=== PATIENT | male | born 1960 | race Caucasian/White ===

== ENCOUNTER 2017-06-01 07:52 | Inpatient (IN) | payer BC ==
[2017-06-01 08:32] LABS: #Eosinphils 0.1 thou/uL (0.0-0.7); #Lymphocytes 0.8 thou/uL (1.20-3.40); #Monocytes 1.4 thou/uL (0.11-0.59); #Neutrophils 14.3 thou/uL (1.40-6.50); %Basophils 0.2 % (0.0-1.0); %Eosinophils 0.4 % (0.0-10.0); %Lymphocytes 4.7 % (21.0-51.0); %Monocytes 8.4 % (0.0-10.0); %Neutrophils 86.3 % (42.0-75.0); Hemoglobin 12.8 g/dL (14.0-18.0); Mean Corpuscular HGB CONC 33.3 g/dL (32.0-36.0); Mean Corpuscular Hemoglobin 30.1 pg (27.0-31.0); Mean Corpuscular Volume 90.3 fl (80.0-94.0); Mean Platelet Volume 6.8 fL (7.4-10.4); Platelet Count 313 thou/uL (130-400); RBC Distribution Width 11.1 % (11.5-14.5); Red Blood Cell (RBC) Count 4.26 mill/uL (4.70-6.10); White Blood Cell (WBC) Count 16.6 thou/uL (4.8-10.8)
[2017-06-01] MEDS ORDERED: Ondansetron HCl/PF 4 MG/2 ML Vial ONE ×2 (08:50→12:38)
[2017-06-01 08:55] LABS: ALT (SGPT) 13 U/L (8-55); AST (SGOT) 18 U/L (5-34); Albumin 3.9 g/dL (3.5-5.0); Alkaline Phosphatase 112 U/L (40-150); Anion Gap 14 mmol/L (10-20); BUN (Urea Nitrogen) 41 mg/dL (8.4-25.7); Bilirubin, Total 0.6 mg/dL (0.2-1.2); Calc. Creatinine Clearance 0 mL/min (70-130); Calcium 9.7 mg/dL (7.8-10.44); Carbon Dioxide 23 mmol/L (22-29); Chloride 104 mmol/L (98-107); Estimated GFR-MDRD 24; Globulin 3.9 g/dL (2.4-3.5); Glucose 118 mg/dL (70-105); Lipase 50 U/L (8-78); Potassium 4.6 mmol/L (3.5-5.1); Protein, Total 7.8 g/dL (6.0-8.3); Sodium 136 mmol/L (136-145)
--- NOTE | 2017-06-01 09:06 | CT ---
CT ABDOMEN AND PELVIS WITHOUT CONTRAST STONE PROTOCOL: Date: 06/01/17 HISTORY: Left flank pain. COMPARISON: CT abdomen and pelvis stone protocol from 2016. FINDINGS: There is an obstructive calculus of the left ureteropelvic junction. This is a large calculus measuri ng approximately 8.0 mm transverse x almost 1.0 cm in craniocaudad length. There is obstructive hydro nephrosis on the left. Multiple punctate nonobstructive calculi within left renal collecting system. There is mild thickening of the right proximal ureter. No calculi seen within the urinary bladder. Mild diverticular disease sigmoid colon without active inflammation. No dilated loops of large or sma ll bowel. Lung bases are clear. No pericardial effusion. The aortoiliac contour is nonaneurysmal. Skeleton unremarkable. IMPRESSION: 1. Obstructive calculus proximal left ureter at the ureteropelvic junction measuring 8.0 mm x 1.0 cm . Urologic consultation is recommended. 2. Atrophic right kidney. 3. Mild thickening of the right-sided proximal ureter, likely sequelae of chronic reflux or calculus passage. 4. Similar appearance to the punctate left lower lobe 3.0 mm nodule. POS: [facility]
[2017-06-01 09:48] LABS: Bilirubin Negative (Negative); Blood, Urine Large (Negative); Clarity CLOUDY (Clear); Glucose, Urine (Dipstick) Negative (Negative); Leukocyte Trace (Negative); Nitrite Negative (Negative); Protein, Urine (Dipstick) 100 mg/dL (Neg-Trace); Specific Gravity, Urine 1.013 (1.002-1.036); Urobilinogen 0.2 mg/dL (0.2-1.0); pH, Urine 7.5 (5.0-9.0)
[2017-06-01 09:50] LABS: Bacteria/HPF None Seen HPF (None Seen); Hyaline Casts/LPF 0-3 HYALINE CAST LPF (0-3 Hyaline); Pathc Cast-AUWi Flag 0.13 (0-2.49); RBC/HPF GREATER THAN 50-TNTC HPF (0-3); Squamous Epithelial None Seen HPF (0-3)
[2017-06-01] MEDS ORDERED: Lidocaine 1% PF 5 ML VIAL ONE (12:38)
[2017-06-01] MEDS ORDERED: Dexamethasone 20 MG/5 ML VIAL ONE (12:38)
[2017-06-01] MEDS ORDERED: Glycopyrrolate 0.2 MG/ML 5 ML SYRINGE ONE (12:38)
[2017-06-01] MEDS ORDERED: PHENYLEPHRINE-NS 100 MCG/ML 10 ML SYRINGE ONE (12:38)
[2017-06-01] MEDS ORDERED: Propofol 200 MG/20 ML VIAL ONE (12:38)
[2017-06-01] MEDS ORDERED: Iothalamate Meglumine 60% 50 ML VIAL FS ONE ×2 (12:38→13:17)
[2017-06-01] MEDS ORDERED: Morphine 2 MG/ML SYRINGE ONE (14:37)
[2017-06-01] MEDS ORDERED: Fentanyl 100 MCG/2 ML VIAL ONE (15:02)
[2017-06-01] MEDS ORDERED: cefTRIAXone\\ROCEPHIN 1 GM, Syringe 0.4 ML in Sterile Water 9.6 ML SLOW IVP SCH (15:30)
[2017-06-01] MEDS ORDERED: Mag-Al 1200 mg/1200 mg/30 ML UDCUP PO PRN (16:49)
[2017-06-01] MEDS ORDERED: hydrALAZINE 20 MG/ML VIAL SLOW IVP PRN (16:49)
[2017-06-01] MEDS ORDERED: HYDROcodone/Acetaminophen 5/325 mg Tablet PO PRN ×2 (16:49)
[2017-06-01] MEDS ORDERED: diphenhydrAMINE 25 MG CAP PO PRN (16:49)
[2017-06-01] MEDS ORDERED: Morphine 4 MG/ML Carpuject IVP PRN (16:49)
[2017-06-01] MEDS ORDERED: Ondansetron HCl/PF 4 MG/2 ML Vial IVP PRN (16:49)
[2017-06-01] MEDS ORDERED: Hyoscyamine Sulfate SL 0.125 mg Tablet SL PRN (16:49)
[2017-06-01] MEDS ORDERED: Oxybutynin 5 MG TAB PO PRN (16:49)
[2017-06-01] MEDS ORDERED: Sodium Chloride 0.9% 1,000 ML IV SCH (17:00)
--- NOTE | 2017-06-01 19:06 | OP ---
DATE OF PROCEDURE: 06/01/2017 SERVICE: Urology. SURGEON: Luke Rivas M.D. PRETOPERATIVE DIAGNOSES: 1. Left ureteropelvic junction stone. 2. Acute kidney injury. 3. Solitary functioning left kidney. POSTOPERATIVE DIAGNOSES: 1. Left ureteropelvic junction obstruction. 2. Acute kidney injury. 3. Left solitary functioning kidney. PROCEDURE PERFORMED: Cystoscopy with left ureteral stent placement, 6 x 28 double-J stent. INDICATIONS FOR PROCEDURE: Mr. Lopez is a 56-year-old white male who I have seen in the past for n ephrolithiasis. He has a known left-sided solitary functioning kidney with significant atrophy of th e right kidney secondary to IgA nephropathy. He came in with a history of flank pain and a 1 cm left UPJ stone with acute kidney injury. Given the solitary kidney, I recommended he come in for uretera l stent placement. Risks and benefits of surgery have been discussed and he has agreed to proceed fo rward. DESCRIPTION OF PROCEDURE: After identification of armband and verification of consent, patient was b rought back to the operating room where he underwent general anesthesia with an LMA. He was then mark fabio in dorsal lithotomy position, prepped and draped in usual sterile fashion. After appropriate ann eout, a lubricated 22 Malaysian rigid cystoscope was introduced per urethra into the bladder. The prost ate was only mildly hypertrophic with no strictures in the urethra. The bladder was unremarkable. B oth ureters were in their orthotopic location. The left ureter was cannulated with a 0.035 sensor wi re up to the level of the renal pelvis. On fluoroscopy, the stone was only faintly radiopaque and th e wire was navigated past this. A 6 x 28 double-J stent was then advanced over the sensor wire up to the level of the renal pelvis. The wire was then removed leaving a good curl in the renal pelvis an d good curl in the bladder. The bladder was emptied, the cystoscope removed. The patient was then a wakened and taken to PACU for recovery in stable condition. COMPLICATIONS: None. ESTIMATED BLOOD LOSS: Minimal. RETAINED TUBES AND DRAINS: A 6 x 28 double-J stent on the left. SPECIMENS: None. DISPOSITION: Patient will be discharged home and followed up with me later this week for ureteroscop y with laser lithotripsy for removal of the stone.
[2017-06-01] MEDS: Docusate 100 MG CAP PO SCH (21:39)
[2017-06-02 03:54] VITALS: BMI 31.4
[2017-06-02 05:45] LABS: #Lymphocytes 1.2 thou/uL (1.20-3.40); #Neutrophils 11.1 thou/uL (1.40-6.50); %Basophils 0.2 % (0.0-1.0); %Eosinophils 0.3 % (0.0-10.0); %Lymphocytes 8.6 % (21.0-51.0); %Monocytes 7.8 % (0.0-10.0); %Neutrophils 83.2 % (42.0-75.0); Hemoglobin 12.5 g/dL (14.0-18.0); Mean Corpuscular HGB CONC 32.9 g/dL (32.0-36.0); Mean Corpuscular Hemoglobin 30.3 pg (27.0-31.0); Mean Corpuscular Volume 92.1 fl (80.0-94.0); Platelet Count 279 thou/uL (130-400); RBC Distribution Width 11.3 % (11.5-14.5); Red Blood Cell (RBC) Count 4.12 mill/uL (4.70-6.10); White Blood Cell (WBC) Count 13.4 thou/uL (4.8-10.8)
[2017-06-02 05:54] LABS: Anion Gap 14 mmol/L (10-20); BUN (Urea Nitrogen) 44 mg/dL (8.4-25.7); Calc. Creatinine Clearance 36 mL/min (70-130); Calcium 9.5 mg/dL (7.8-10.44); Carbon Dioxide 22 mmol/L (22-29); Chloride 105 mmol/L (98-107); Estimated GFR-MDRD 20; Glucose 127 mg/dL (70-105); Potassium 5.2 mmol/L (3.5-5.1); Sodium 136 mmol/L (136-145)
[2017-06-02] MEDS ORDERED: Cipro 250 MG TAB PO SCH (08:00)
--- NOTE | 2017-06-02 10:00 | ULT ---
RENAL SONOGRAM: History: Renal insufficiency. FINDINGS: Right kidney is 7.7 cm in length with atrophy of the cortex. No hydronephrosis. Left kidney is 11.3 cm in length with a normal appearance. Urinary bladder is incompletely distended. IMPRESSION: Atrophied right kidney. No evidence of urinary tract obstruction. POS: [facility]
[2017-06-02] MEDS ORDERED: Nitroglycerin 0.4 MG TAB (25 Tab Bottle) SL PRN (10:08)
[2017-06-02] MEDS: Docusate 100 MG CAP PO SCH (10:22)
[2017-06-02 11:46] VITALS: TEMP 97.8
[2017-06-02 16:52] LABS: Anion Gap 13 mmol/L (10-20); BUN (Urea Nitrogen) 45 mg/dL (8.4-25.7); Calc. Creatinine Clearance 39 mL/min (70-130); Calcium 9.7 mg/dL (7.8-10.44); Carbon Dioxide 25 mmol/L (22-29); Chloride 107 mmol/L (98-107); Estimated GFR-MDRD 22; Glucose 95 mg/dL (70-105); Potassium 5.3 mmol/L (3.5-5.1); Sodium 140 mmol/L (136-145)
[2017-06-02 17:21] VITALS: BP 173/81
--- NOTE | 2017-06-02 18:00 | PRG ---
DATE OF SERVICE: 06/02/2017 SUBJECTIVE: The patient states he is feeling fine today. He has had some urgency and hematuria whic h is expected after his ureteral stent. He denies any fevers, nausea, vomiting or significant pain. His creatinine was further elevated this morning; therefore, I had ordered a renal ultrasound which he has already gone down for. OBJECTIVE: VITAL SIGNS: Temperature 97.8, pulse 94, respirations 20, blood pressure 173/80, saturation 98% on r oom air. GENERAL: No apparent distress. Communicative and alert. CARDIOVASCULAR: Regular rate and rhythm. CHEST: Clear anteriorly. No increased work of breathing. Symmetric expansion. ABDOMEN: Soft, nontender, nondistended, positive bowel sounds. EXTREMITIES: No clubbing, cyanosis or edema. SKIN: Warm and dry without rashes or lesions. ASSESSMENT AND PLAN: Renal ultrasound results demonstrates no evidence of hydronephrosis and signifi cant thinning of the right kidney with atrophy. On laboratory evaluation, the patient's white count has decreased from 16.6-13.4 with hemoglobin of 12.5, which is stable. Creatinine has increased from 2.74 to 3.26 with elevated potassium of 5.2. Repeat creatinine in the afternoon on demonstrate s a decrease in his creatinine to 3, but persistence of his hyperkalemia to 5.3. ASSESSMENT: A 56-year-old white male with solitary functioning left kidney with a left 1 cm ureterop elvic junction stone, status post ureteral stent placement with acute kidney injury which has worsene d after stent placement. It is possible that the patient's acute kidney injury has worsened not nece ssarily due to his surgery, but possibly due to anesthesia, dehydration or other compounding factors. His creatinine is resolving somewhat and his hyperkalemia is not extremely significant. 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 If he stays overnight , it may be reasonable to give him a dose of Kayexalate to try and decrease his potassium levels. Al though they are not significantly elevated, they are not coming down very quickly. The patient does have Proteus in his urine which has not yet speciated. We will probably plan for discharge early in the morning tomorrow with antibiotic once we have the susceptibilities so that he may come back and r eturn for surgery on for ureteroscopy and treatment of the stone. So long as his creatinine continues to improve, I do not think Nephrology as an inpatient consult will be necessary unless his electrolytes worsen or if his creatinine begins to rise again.
[2017-06-02] MEDS ORDERED: Apixaban 5 MG TAB PO SCH (21:00)
[2017-06-02] MEDS ORDERED: Metoprolol Tartrate 50 MG TAB PO SCH (21:00)
[2017-06-03] MEDS ORDERED: FLU VACC QS2017-18 36 mo. & older 0.5 ML SYRINGE IM ONE (09:00)
[2017-06-03] MEDS ORDERED: Aspirin 81 mg Enteric Coated Tablet PO SCH (09:00)
[2017-06-03] MEDS ORDERED: Atorvastatin Calcium 40 MG TAB PO SCH (09:00)
--- NOTE | 2017-06-03 13:03 | DIS ---
ADMITTING DIAGNOSES: 1. Left ureteral calculus. 2. Solitary left functioning kidney. 3. Acute kidney injury. DISCHARGE DIAGNOSES: 1. Left ureteral calculus. 2. Solitary left functioning kidney. 3. Acute kidney injury. ADMITTING PHYSICIAN: Luke Rivas M.D. DISCHARGING PHYSICIAN: Luke Rivas M.D. PROCEDURE PERFORMED WHILE INPATIENT: Cystoscopy with left ureteral stent placement. BRIEF HISTORY: Mr. Lopez is a 56-year-old white male who I have seen in the past for nephrolithias is. He does have a history of IgA nephropathy with a solitary functioning left kidney which has travel coordinator yesenia kidney disease. He has a known history of stone in that kidney which has now passed and is now a t the UPJ. This has resulted in acute kidney injury and I have recommended treatment with a ureteral stent at this time with plans to treat the stone at a later date. Please see the full H&P to scan i n the [employer] system for the full notes. HOSPITAL COURSE: After his surgery, please see operative note for details. The patient was admitted to the hospital for postoperative recovery. His creatinine subsequently sangeetha on postop day #1 from 2.7 to 3.6 with an elevation in his BUN and potassium. Labs were checked later that afternoon, which showed a decrease in his creatinine. His BUN and potassium were relatively stable. I felt that he should start to recover and we could go ahead and make plans for his ureteroscopy. He did have Prote us and low colony counts in his urine; therefore, I recommended he remain on ciprofloxacin at renal d oses for adequate treatment for 7 days. I gave the patient the option of staying in the hospital for 1 additional day to have his surgery as an inpatient on or to go home and come back with re peat labs on the day of surgery to ensure that his electrolytes were suitable for surgery and that hi s kidney function had continued to improve. He elected to go home and come back, understanding there is a possibility that the surgery may have to be canceled if his electrolytes are significantly out of their normal parameters or he has evidence of significant kidney injury again. The patient electe d for discharge and he was discharged home. DISPOSITION: Discharge to home. DISCHARGE CONDITION: Stable. DISCHARGE MEDICATIONS: Include resuming his home medications and remaining on his aspirin and Eliqui s. In addition, he was given prescriptions for [place], Colace, oxybutynin, Flomax and Cipro 250 mg q. 18h. for 7 days. DISCHARGE INSTRUCTIONS: Discharge instructions are listed in the scanned portion of the [employer] sys tem in the discharge packet. Follow up will be on this week for ureteroscopy, laser lithotr ipsy pending normal laboratory parameters on arrival to Day Stay.
== END 2017-06-02 18:35 | disposition home or self-care (01) | DRG 694 ==
LOC: ERS 07:52 → SDC 13:15 → OBSVTOIN 17:02 → 3SE 17:02
PROVIDERS: ADMIT Urology; ATTEND Urology
PROC: 0T778DZ Dilation of Left Ureter with Intraluminal Device, Via Natural or Artificial Opening Endoscopic (ICD-10-PCS; principal; 2017-06-01)
DX: N20.1 Calculus of ureter (principal); N17.9 Acute kidney failure, unspecified; I48.91 Unspecified atrial fibrillation; E87.5 Hyperkalemia; N02.8 Recurrent and persistent hematuria with other morphologic changes; N18.9 Chronic kidney disease, unspecified; I25.10 Atherosclerotic heart disease of native coronary artery without angina pectoris; I25.2 Old myocardial infarction; Z95.5 Presence of coronary angioplasty implant and graft; R82.71 Bacteriuria; Z87.442 Personal history of urinary calculi
CPT/HCPCS: 36415; 74176; 74420; 76770; 80048; 80053; 81003; 81015; 83690; 85025; 87040; 87086; 96361; 96365; 96375; 96376; A4216; C1758; C1769; J0360; J0696; J0744; J1100; J2001; J2270; J2405; J2704; J3010; Q9961

== ENCOUNTER 2017-06-04 06:37 | Day surgery (SDC) | payer BC ==
[2017-06-03 17:11] VITALS: BMI 31.4
[2017-06-04 11:15] LABS: INR-International Normal Ratio 1.2; Prothrombin Time 15.4 SEC (12.0-14.7)
[2017-06-04 11:16] LABS: PTT 36.2 SEC (22.9-36.1)
[2017-06-04] MEDS ORDERED: Levofloxacin 500 mg/D5W 100 ml Premix Bag ONE (11:18)
[2017-06-04 12:07] LABS: Chloride 106 mmol/L (98-107); Potassium 4.4 mmol/L (3.5-5.1); Sodium 138 mmol/L (136-145)
[2017-06-04 12:08] LABS: Calcium 9.6 mg/dL (7.8-10.44); Glucose 86 mg/dL (70-105)
[2017-06-04 12:10] LABS: Anion Gap 12 mmol/L (10-20); Carbon Dioxide 24 mmol/L (22-29)
[2017-06-04 12:11] LABS: Calc. Creatinine Clearance 48 mL/min (70-130); Estimated GFR-MDRD 27
[2017-06-04 12:12] LABS: BUN (Urea Nitrogen) 39 mg/dL (8.4-25.7)
[2017-06-04] MEDS ORDERED: Fentanyl 100 MCG/2 ML VIAL ONE (12:46)
[2017-06-04] MEDS ORDERED: cefTRIAXone\\ROCEPHIN 1 GM, Syringe 0.4 ML in Sterile Water 9.6 ML SLOW IVP SCH (13:00)
[2017-06-04] MEDS ORDERED: Dexamethasone 20 MG/5 ML VIAL ONE (14:23)
[2017-06-04] MEDS ORDERED: ePHEDrine/0.9% NaCl/PF SYRINGE 50 mg/10 ml ONE (14:23)
[2017-06-04] MEDS ORDERED: Lidocaine 1% PF 5 ML VIAL ONE (14:23)
[2017-06-04] MEDS ORDERED: Ondansetron HCl/PF 4 MG/2 ML Vial ONE (14:23)
[2017-06-04] MEDS ORDERED: PROPOFOL 200 MG/20 ML VIAL ONE (14:23)
[2017-06-04] MEDS ORDERED: Metoclopramide HCl 10 MG/2 ML VIAL ONE (14:23)
[2017-06-04] MEDS ORDERED: PHENYLEPHRINE-NS 100 MCG/ML 10 ML SYRINGE ONE (14:23)
--- NOTE | 2017-06-04 15:27 | OP ---
DATE OF PROCEDURE: 06/04/2017 SERVICE: Urology. SURGEON: Luke Rivas M.D. PREOPERATIVE DIAGNOSIS: Left ureteral stone. POSTOPERATIVE DIAGNOSIS: Left renal stone. PROCEDURES PERFORMED: Cystoscopy with left ureteroscopy, laser lithotripsy, basket extraction of sto ne, and placement of a 6 x 28 double-J stent. INDICATIONS FOR PROCEDURE: Mr. Lopez is a 56-year-old white male with Buerger's disease with a lynn itary functioning left kidney. Unfortunately, he developed a stone which got stuck at the UPJ measur ing about 1 cm, resulting in acute kidney injury. He underwent emergent stenting at that time and is now presenting for definitive treatment of his ureteral stone. Of note, his electrolytes have sonal lized and he is on Cipro prophylaxis already. Risks and benefits of surgery have been discussed and he has agreed to proceed forward. DESCRIPTION OF PROCEDURE: After identification of armband and verification of consent, the patient w as brought back to the operating room where he underwent general anesthesia with an LMA. He was then placed in dorsal lithotomy position, prepped and draped in usual sterile fashion. After appropriate timeout, a lubricated 22 Hebrew rigid cystoscope was introduced per urethra into the bladder. Atten tion was turned to the left ureteral orifice from which there was a stent emanating. Flexible graspe rs were used to grasp the stent and bring it out to the level of the urethral meatus. A 0.035 sensor wire was then used to navigate through the ureteral stent up to the level of the renal pelvis. The stent was then removed and discarded and a dual-lumen catheter was inserted over the sensor wire up t o the level of the proximal ureter. An Amplatz Super Stiff wire was then advanced through the second lumen up to the level of the renal pelvis and the dual-lumen catheter was then removed. The sensor wire was secured to the drapes as a safety wire and a 13 x 15 x 42 cm ureteral access sheath was then advanced over the Super Stiff wire to the level of the proximal ureter. The inner cannula and Super Stiff wire were then removed leaving the sensor wire and the outer sheath in place. A flexible digi niya ureteroscopy was then placed through the ureteral access sheath to the level of the proximal uret er. No stone was encountered upon entry to the renal pelvis. The stone was sitting within the renal pelvis. A 200 micron laser fiber was then used to fragment the stone into small pieces. A 1.9 Fren ch 0 tip nitinol basket was then used to grasp all the large fragments and remove them for stone anal ysis. Upon completion of basketing, there were no stone fragments identified that were over #1 mm in size. There was a significant amount of stone debris, but this could easily pass on its own without significant obstruction or result in acute kidney injury for the patient. Given that this was a lynn itary kidney, I felt that we will need to re-stent the patient. Pull back ureteroscopy was employed and no stones were found within the ureter. There were several blood clots, however; a 22 Hebrew rig id cystoscope was then backloaded over the sensor wire back into the bladder and a 6 x 28 double-J st ent advanced over the sensor wire up into the renal pelvis. The sensor wire was then removed leaving a good curl in the renal pelvis and good curl in the bladder. The bladder was then emptied and the cystoscope removed. The patient was then awakened and taken to PACU for recovery in stable condition . COMPLICATIONS: None. ESTIMATED BLOOD LOSS: Minimal. RETAINED TUBES AND DRAINS: A 6 x 28 double-J stent on the left. SPECIMENS: Stone for stone analysis. DISPOSITION: The patient will be discharged home and follow up with me in approximately 2 weeks for cystoscopy and stent pull.
[2017-06-09 16:14] LABS: Color Orange (.); Comment Note: (.); Uric Acid 100 % (.)
--- NOTE | 2017-08-03 21:49 | EKG ---
Test Reason : PREOP Blood Pressure : / mmHG Vent. Rate : 074 BPM Atrial Rate : 074 BPM P-R Int : 186 ms QRS Dur : 090 ms QT Int : 384 ms P-R-T Axes : 034 -17 014 degrees QTc Int : 426 ms Electronic atrial pacemaker Minimal voltage criteria for LVH, may be normal variant Inferior infarct (cited on or before 28-APR-2015) Abnormal ECG When compared with ECG of 18-APR-2016 07:14, No significant change was found Confirmed by YUNG DENT M.D. ([id number]) on 08/03/2017 9:48:51 PM Referred By: SOLANGE Confirmed By:YUNG DENT M.D.
== END 2017-06-04 16:00 | disposition home or self-care (01) ==
LOC: SDC 06:37
PROVIDERS: ATTEND Urology
PROC: 0T778DZ Dilation of Left Ureter with Intraluminal Device, Via Natural or Artificial Opening Endoscopic (ICD-10-PCS; principal; 2017-06-04)
PROC: 0TF78ZZ Fragmentation in Left Ureter, Via Natural or Artificial Opening Endoscopic (ICD-10-PCS; principal; 2017-06-04)
DX: N20.1 Calculus of ureter (principal); I73.1 Thromboangiitis obliterans [Buerger's disease]; Z79.82 Long term (current) use of aspirin; Z79.01 Long term (current) use of anticoagulants; Z79.899 Other long term (current) drug therapy; Z91.041 Radiographic dye allergy status; Z88.8 Allergy status to other drugs, medicaments and biological substances; Z98.84 Bariatric surgery status; Z98.52 Vasectomy status; Z95.5 Presence of coronary angioplasty implant and graft; Z95.0 Presence of cardiac pacemaker; Z90.49 Acquired absence of other specified parts of digestive tract; Z90.5 Acquired absence of kidney; Z98.890 Other specified postprocedural states
CPT/HCPCS: 36415; 76000; 80048; 82365; 85610; 85730; 88300; 93005; 93010; A4216; C1769; J0131; J0696; J1100; J1956; J2001; J2405; J2704; J2765; J3010

== ENCOUNTER 2017-07-29 07:47 | Outpatient (CLI) | payer BC | END 2017-07-29 07:48 | disposition home or self-care (01) | LOC: BICULT 07:47 | PROVIDERS: ATTEND Urology | DX: N20.0 Calculus of kidney (principal) | CPT/HCPCS: 76770 ==

== ENCOUNTER 2018-01-07 06:09 | Inpatient (IN) | payer BC ==
[2018-01-07] MEDS ORDERED: Labetalol HCl 100 MG/20 ML VIAL ONE (06:26)
[2018-01-07 06:32] LABS: INR-International Normal Ratio 1.1; PTT 26.7 SEC (22.9-36.1); Prothrombin Time 14.2 SEC (12.0-14.7)
[2018-01-07 06:34] LABS: Hemoglobin 11.8 g/dL (14.0-18.0); Mean Corpuscular HGB CONC 33.5 g/dL (32.0-36.0); Mean Corpuscular Hemoglobin 28.2 pg (27.0-31.0); Mean Corpuscular Volume 84.2 fL (78.0-98.0); Mean Platelet Volume 7.5 fL (7.4-10.4); Platelet Count 304 thou/uL (130-400); RBC Distribution Width 12.2 % (11.5-14.5); Red Blood Cell (RBC) Count 4.17 mill/uL (4.70-6.10); White Blood Cell (WBC) Count 13.6 thou/uL (4.8-10.8)
[2018-01-07 06:40] LABS: ALT (SGPT) 15 U/L (8-55); AST (SGOT) 22 U/L (5-34); Alkaline Phosphatase 122 U/L (40-150); Anion Gap 16 mmol/L (10-20); BUN (Urea Nitrogen) 30 mg/dL (8.4-25.7); Bilirubin, Total 0.4 mg/dL (0.2-1.2); Calc. Creatinine Clearance 0 mL/min (70-130); Calcium 8.9 mg/dL (7.8-10.44); Carbon Dioxide 18 mmol/L (22-29); Chloride 108 mmol/L (98-107); Estimated GFR-MDRD 28; Globulin 3.5 g/dL (2.4-3.5); Glucose 173 mg/dL (70-105); Potassium 3.8 mmol/L (3.5-5.1); Protein, Total 7.5 g/dL (6.0-8.3); Sodium 138 mmol/L (136-145)
[2018-01-07] MEDS ORDERED: Propofol 1,000 MG/100 ML VIAL IV ONE (06:40)
[2018-01-07 06:44] LABS: CKMB 2.4 ng/mL (0-6.6); Troponin I Less than 0.010 ng/mL (< 0.028)
[2018-01-07 06:48] LABS: Actual Bicarbonate (HCO3a) 20.1 mEq/L (22-28); Analyzer IN Cardio ER; Base Excess (BEa) -4.3 mEq/L (-2.0 to +3.0); CO2 Tension 34.5 mmHg (35.0-45.0); Calcium, Ionized 1.15 mmol/L (1.12-1.30); Carboxyhemoglobin (COHb) 0.3 gm% (0.0-3.0); Hemoglobin (Hb) 12.2 g/dL (14.0-18.0); O2 Tension (PaO2) 252.3 mmHg (80.0-100.0); Potassium - ABG Lab 3.9 mmol/L (3.70-5.30); Puncture Site LRA; pH, Arterial 7.38 (7.35-7.45)
[2018-01-07 06:49] LABS: ALV-art Gradient 417.575 (0-20)
[2018-01-07 06:53] LABS: Band 1 % (5-11); Eosinophils 1 % (0-10); Lymphocytes 46 % (21-51); MDiff Complete? YES; Monocytes 6 % (0-10); Neutrophil 45 % (42-75); RBC Morphology Normal; Reactive Lymphocytes 1 % (0-10)
[2018-01-07] MEDS ORDERED: niCARdipine 20MG In NaCl 20 MG/200 ML BAG ONE (06:57)
[2018-01-07] MEDS ORDERED: [UNRECOGNIZED DRUG - OTHER] IV SCH (07:45)
[2018-01-07] MEDS ORDERED: ADMIXTURE FEE IV SCH ×3 (07:45→16:00)
[2018-01-07] MEDS ORDERED: HUM PROTHROMBIN CPLX IV SCH ×4 (07:45→16:00)
[2018-01-07 07:51] LABS: Bilirubin Negative (Negative); Blood, Urine Small (Negative); Clarity CLEAR (Clear); Glucose, Urine (Dipstick) Negative (Negative); Leukocyte Negative (Negative); Nitrite Negative (Negative); Protein, Urine (Dipstick) 100 mg/dL (Neg-Trace); Specific Gravity, Urine 1.015 (1.002-1.036); Urobilinogen 0.2 mg/dL (0.2-1.0); pH, Urine 6.5 (5.0-9.0)
[2018-01-07 07:53] LABS: Bacteria/HPF None Seen HPF (None Seen); Hyaline Casts/LPF 0-3 HYALINE CAST LPF (0-3 Hyaline); Pathc Cast-AUWi Flag 0.29 (0-2.49); Squamous Epithelial 0-3 HPF (0-3); WBC/HPF 0-3 HPF (0-3)
[2018-01-07] MEDS ORDERED: HUMAN PROTHROMBIN COMPLX IV SCH (08:00)
[2018-01-07] MEDS ORDERED: [UNRECOGNIZED DRUG - OTHER] IV SCH (08:00)
[2018-01-07] MEDS ORDERED: manNITOL 20% 500 ML ONE ×2 (08:20→09:09)
[2018-01-07] MEDS ORDERED: diphenhydrAMINE 50 MG/ML VIAL ONE (08:25)
--- NOTE | 2018-01-07 08:52 | RAD ---
RADIOGRAPH CHEST 1 VIEW: Date: 01/07/18 Time: 0637 HOURS HISTORY: 57-year-old male status post intubation for respiratory failure. COMPARISON: 12/05/15. FINDINGS: This is a supine image, which would be insensitive for pneumothorax detection. Again noted is the collin l lead left subclavian pacemaker. Endotracheal tube has been placed, with distal tip 6.5 cm superior to the hector. There is a new finding of dense opacification of most of the right lung. There is rela tive mildly better aeration at the right base compared to the right mid and upper lung zones. There i s also slight elevation of the hemidiaphragm suggesting that some of the air space densities on the r ight could be atelectasis. Another new finding of widening of the mediastinum, especially on the righ t. There is mild left perihilar haziness. Mild, small air space density in the retrocardiac medial ba se of the left lower lobe. The periphery of the left lung is clear. A vertically descending catheter is visualized in the mediastinum, reportedly an OG tube rather than a NG tube. Its distal portion is difficult to visualize as it overlaps the thoracic spine, and its po sition is difficult to determine. IMPRESSION: 1. Extensive air space densities throughout the right lung, which could represent pneumonia, aspirat ion, atelectasis, or a combination of the above. 2. Widening of the mediastinum. 3. Status post intubation and orogastric tube placement. BECKY [] POS: [facility]
[2018-01-07] MEDS ORDERED: DISCONTINUE PREVIOUS NARCOTIC PAIN MEDICATIONS AND BENZODIAZEPINES FS SCH (09:40)
[2018-01-07] MEDS ORDERED: Fentanyl BOLUS 250 ML IVPB PRN (09:40)
[2018-01-07] MEDS ORDERED: Lorazepam 2 MG/ML VIAL SLOW IVP PRN (09:40)
[2018-01-07] MEDS ORDERED: Propofol BOLUS 1,000 MG/100 ML VIAL IV PRN (09:40)
[2018-01-07] MEDS ORDERED: fentaNYL Citrate/PF 2,000 MCG in Sodium Chloride 0.9% 60 ML IV SCH (09:40)
[2018-01-07] MEDS: niCARdipine HCl 25 MG in Sodium Chloride 0.9% 250 ML 240 ML IVPB SCH ×2 (10:12→21:06)
[2018-01-07] MEDS ORDERED: [UNRECOGNIZED DRUG - OTHER] IV SCH (10:15)
[2018-01-07] MEDS ORDERED: Phytonadione 10 MG/ML AMP SC SCH (10:15)
[2018-01-07] MEDS ORDERED: levETIRAcetam In NaCl (Iso-Os) 1,000 MG in Premix Bag 1 BAG IVPB SCH (10:15)
[2018-01-07] MEDS: Sodium Chloride 0.9% 1,000 ML IV SCH ×2 (10:54→20:00)
--- NOTE | 2018-01-07 11:26 | CT ---
CT ANGIOGRAM OF [place]: Date: 01/07/18 HISTORY: Intracranial hemorrhage/subarachnoid and subdural blood. COMPARISON: 01/07/18 at 0624 hours. TECHNIQUE: CT angiogram of the head is performed in the axial plane. Three-dimensional reformatted images are clemens bmitted for interpretation. FINDINGS: Distal cervical internal carotid arteries have symmetric enhancement and luminal diameter. There is no significant atherosclerosis involving the intracranial internal carotid arteries. Anterior Circulation: There is symmetric enhancement and luminal diameter of A1 and M1 segments. The proximal MCA segments and LEANDRO segments are unremarkable. Posterior Circulation: Intracranial vertebral arteries are unremarkable. Visualized left and right PICA artery origins are g rossly unremarkable. The basilar artery is patent. There is a basilar tip aneurysm measuring 5.0 mm anterior posterior x 5.0 mm mediolateral x 4.0 mm cr aniocaudal. Note: On the cranial images, this aneurysm may actually have a [id number]-hs-rinbe appearanc e and there may be a second aneurysmal component that is somewhat more cephalad in location. This sec ond component measures 4.0 mm anterior posterior x 5.0 mm mediolateral x 4.0 mm craniocaudal. Interval increased intraventricular hemorrhage. There is now hemorrhage in the ventricular system. Clemens barachnoid hemorrhage and subdural hemorrhage is redemonstrated. 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 There is associated worsening intracranial hemorrhag e. Hemorrhage is now noted in the ventricular system, subarachnoid space, as well as along the tentor ium. Results of study discussed with Dr. Simmons on 01/07/18 at 0919 hours. CODE CR. POS: [facility]
--- NOTE | 2018-01-07 12:19 | PRG ---
DATE OF SERVICE: 01/07/2018 I personally examined the patient, reviewed records and imaging and spoke with the family and agree with documentation of Wanda Segura PA-C dated 2017. Briefly, Clarence Lopez is a 57-year-old gentleman with a history of kidney disease, heart attack and coronary artery disease who is doing well this morning. In talking with his when he went back to bed, she went back into wake her again and he was unarousable. She heard some strange noises coming from the bedroom that led her to go check on him. She brought him to the emergency department where CT examination of the brain revealed subarachnoid hemorrhage that seemed aneurysmal. Extended to the basal cisterns all the way down the posterior fossa. There is some in the fourth ventricle. There is some in the suprasellar cistern and some extending into the sylvian cisterns and interhemispheric cistern. CT angiogram was performed showing a basilar tip aneurysm. Mr. Lopez was on aspirin and Eliquis prior to this hemorrhage. Kcentra has been given in the emergency department. He was transferred to the ICU where mannitol finished been administered just minutes ago. When I saw Mr. Lopez in the ICU, his Cardene drip is off, his blood pressures in the 90s/60s. He is getting his IV fluids at 100 mL an hour for rehydration purposes. His pupils are more equal than they were before, they are both reactive. He has brainstem reflexes that are intact. He has extensor posturing. There is no conscious activity. There is no localization. There is no following commands. The original CT showed his ventricles were a little larger than I might have expected for his age, but not overtly hydrocephalic. A CT angiogram does not show an increase in size of the ventricles. Mr. Lopez clinical grade is poor. He has extensor posturing, is not opening his eyes and he does not respond to commands. He has a diffuse subarachnoid hemorrhage from a basilar tip aneurysm. I have already contacted Dr. Byrd about endovascular therapy for his ruptured aneurysm. However, we need to make a decision this afternoon whether we need access to the intracranial space to measure intracranial pressure and relieve some CSF. Obviously in the setting of a newer anticoagulant on top of aspirin use, this would be a high risk procedure if we elect to take him to the operating room. We will run another dose of Kcentra. We will give another dose Kcentra while performing the procedure. I discussed this at length with his already. WILFREDO
--- NOTE | 2018-01-07 12:20 | CT ---
PRELIMINARY REPORT/[facility]/EMERGENTY AFTER-HOURS PROCEDURE Addendum created by Alexander Sheldon MD on 01/07/2018 6:45 AM Central Time ([place] & [place]) Report of this case was discussed with BECKY Schaefer at 6:45 AM CDT, 01/07/2018. The findings were acknowledged and understood. Initial Report created on 01/07/2018 6:42 AM Central Time ([place] & [place]) CT Head Without Intravenous Contrast CLINICAL HISTORY: 57 years old, male; Signs and symptoms; Coma or unconsciousness; Additional info: Pt was last seen no rmal at 0500. Pt is unresponsive. TECHNIQUE: Axial computed tomography images of the head/brain without intravenous contrast. COMPARISON: No relevant prior studies available. FINDINGS: Evidence for acute subarachnoid hemorrhage, with moderate subarachnoid blood present, most prominentl y in the suprasellar cistern and around the brainstem. No significant right or left predominance. Findings would raise suspicion for possible ruptured aneurysm, especially basilar tip or posterior co mmunicating artery. No significant mass effect or midline shift. Ventricle size is normal for age. Low attenuation area in the right cerebellum, suspicious for old infarct. No definite acute infarct by CT. MRI could be more sensitive/specific for detection, as clinically di rected. No definite acute skull fracture. Included paranasal sinuses are essentially clear. IMPRESSION: Evidence for acute subarachnoid hemorrhage, see above details/discussion. No significant mass effect or midline shift. No definite acute infarct by CT, see above. Other findings discussed above. Thank you for allowing us to participate in the care of your patient. Dictated and Authenticated by: Alexander Sheldon MD 01/07/2018 6:42 AM Central Time ([place] & [place]) FINAL REPORT BY DR. CANTU EMERGENCY AFTER HOURS STUDY: Date: 01/07/18 Time: 0624 hours HISTORY: 57-year-old male with Coma or unconsciousness. Patient is unresponsive. COMPARISON: None. FINDINGS: There is diffuse subarachnoid hemorrhage throughout the basal cisterns symmetrically bilaterally and at midline. There is a small amount of blood effacing the right side of the fourth ventricle. The lat eral, third, and fourth ventricles are mildly dilated, suggestive of a low grade communicating obstru ctive hydrocephalus. There is a moderately large infarction in the right cerebellar hemisphere, eithe r old or subacute. No midline shift. No calvarial fracture. The paranasal sinuses superior to the mid maxillary sinus level, and the bilateral tympanomastoid cavities, are grossly clear. This report agr ees with the preliminary report by Diana. There is also diffuse mild effacement of sulcal markings, in dicating increased intracranial pressure. IMPRESSION: 1. Diffuse subarachnoid hemorrhage is evidence for ruptured intracranial aneurysm. 2. A low grade, communicating obstructive hydrocephalus. 3. Moderate-large infarction in the right PICA (posterior-inferior cerebellar artery) territory, non acute. POS: [facility]
[2018-01-07] MEDS ORDERED: PHENYLEPHRINE-NS 100 MCG/ML 10 ML SYRINGE ONE (14:12)
[2018-01-07] MEDS ORDERED: PROPOFOL 200 MG/20 ML VIAL ONE (14:12)
[2018-01-07] MEDS ORDERED: ISOVUE-370 76%-LOCM 1 ML ONE (14:20)
[2018-01-07 14:32] LABS: Anion Gap 12 mmol/L (10-20); BUN (Urea Nitrogen) 25 mg/dL (8.4-25.7); Calc. Creatinine Clearance 70 mL/min (70-130); Calcium 6.7 mg/dL (7.8-10.44); Carbon Dioxide 15 mmol/L (22-29); Chloride 113 mmol/L (98-107); Estimated GFR-MDRD 41; Glucose 101 mg/dL (70-105); Potassium 3.7 mmol/L (3.5-5.1); Sodium 136 mmol/L (136-145)
--- NOTE | 2018-01-07 15:51 | HP ---
HISTORY OF PRESENT ILLNESS: This is a 57-year-old gentleman who was brought to our Emergency Departm ent for altered mental status. The patient's states that at approximately 5:00 or 5:30 this mor chantelle, everything was normal. They got up and went to the bathroom, they were joking about their dog. They stated that as they started falling asleep, he made some sort of gurgling sound and following that she was unable to get a response out of him. The patient's states that after that she call ed EMS, then the patient was intubated and progress to the emergency room. Upon being brought into [facility] emergency room, a CT was performed showing a subarachnoid hemorrhage. Patient has a history of he art attack and has been on Eliquis and aspirin. The patient was also hypertensive when he was jaydon t in. REVIEW OF SYSTEMS: Unable to obtain review of systems, the patient is intubated. PAST MEDICAL HISTORY: Past medical history that is known from patient's history of heart attack approximately 3 years ago, unable to obtain any other information, the patient is intubated. PAST SURGICAL HISTORY: Bypass or MD approximately 3 years ago. FAMILY HISTORY: There is a family history of heart attack, but no known strokes or aneurysms. SOCIAL HISTORY: Unable to obtain. The patient is intubated. PHYSICAL EXAMINATION: CONSTITUTIONAL: The patient is afebrile, hypertensive at 193/113. HEAD: Atraumatic, normocephalic. ENT: No bleeding gums, no moist mucous membranes. Trachea is midline. EYES: Left eye is dilated and fixed. Right eye is narrow and fixed. RESPIRATORY: Patient is ventilated. Normal chest rise, symmetrical. CARDIOVASCULAR: Regular rate and rhythm. NEUROLOGIC: The patient is intubated and heavily sedated; however, patient is not responsive to stim veda. He does wiggle bilateral toe with a little bit of tingling on the bottom of the foot, the patie nt moves his foot back away. Pupils were nonreactive to light. The patient is not responding. GCS of 3. IMAGING: Diffuse subarachnoid hemorrhage with evidence for a ruptured intracranial aneurysm, low gra de and mild communicating obstructive hydrocephalus, moderate large infarction in the right posterior inferior cerebral arteries territory nonacute. ASSESSMENT AND PLAN: The patient has an acute subarachnoid hemorrhage which we need to obtain a CT a ngio along with maintaining blood pressure, we need to keep his systolics below 130. We need to reve rse blood thinners that the patient is on and give mannitol for maintaining pressure and decrease ___ __. We will continue to monitor. We need an EVD at bedside. We will contact the patient's family i f the patient wishes.
[2018-01-07] MEDS ORDERED: Lidocaine 0.5%/Epinephrine 1:200,000 50 ml Vial ONE (15:56)
[2018-01-07] MEDS ORDERED: [UNRECOGNIZED DRUG - OTHER] IV SCH (16:00)
[2018-01-07] MEDS ORDERED: Midazolam HCl 2 mg/2 ml Vial ONE (16:11)
[2018-01-07] MEDS ORDERED: Fentanyl 100 MCG/2 ML VIAL ONE (16:11)
--- NOTE | 2018-01-07 18:53 | CT ---
NONCONTRAST CT HEAD: 01/07/18 HISTORY: Subarachnoid hemorrhage, EVD placed. COMPARISON: 01/07/18 at 6:24 hours. FINDINGS: There has been interval placement of a ventriculostomy device entering a right frontal approach with the tip traversing the body of the right lateral ventricle and extending medially and inferiorly with the tip appearing to be just inferior to the anterior horn right lateral ventricle in the midline. As noted on CTA of the head on 01/07/18 at 0901 hours, there is persistent interventricular hemorrhage which is overall similar to slightly increased from that examination. Subarachnoid hemorrhage is agai n seen with prominent hemorrhage in the region of the basilar cisterns especially in the region of th e interpeduncular cistern. This was present on the prior exam. Hemorrhage is again seen within the fo urth ventricle and appears adjacent to the brain stem anteriorly. There is a greater degree of cerebr al edema as the previously noted sulci on nonenhanced CT scan of the head earlier today on 01/07/18 are no longer visualized. There is mild dilatation of the ventricular system which is probably related t o mild hydrocephalus. There is stable area of encephalomalacia in the right cerebellar hemisphere. Skin clips overlie the right lateral femoral scalp soft tissues. Endotracheal tube and nasogastric tubes are partially imaged. IMPRESSION: 1. Interval placement of ventriculostomy catheter as described above with tip terminating in the midline just inferior to the anterior horn right lateral ventricle. 2. Persistent subarachnoid and interventricular hemorrhage which may be slightly progressed from the prior exams. 3. Increase in cerebral edema. Previously noted sulci in each cerebral hemisphere are no longer visualized on this exam. POS: UNIQUE
[2018-01-07] MEDS: CEFAZOLIN 1 GM in Sodium Chloride 0.9% 100 ML IVPB SCH (18:57)
[2018-01-07] MEDS: Atorvastatin Calcium 40 MG TAB PO SCH (20:00)
[2018-01-07] MEDS: Metoprolol Tartrate 50 MG TAB PO SCH (20:00)
[2018-01-07] MEDS: Pantoprazole 40 MG VIAL IVP SCH (20:00)
[2018-01-07] MEDS ORDERED: CEFAZOLIN 1 GM in Sodium Chloride 0.9% 100 ML IVPB SCH (20:00)
[2018-01-07 20:18] LABS: Anion Gap 16 mmol/L (10-20); BUN (Urea Nitrogen) 28 mg/dL (8.4-25.7); Calc. Creatinine Clearance 52 mL/min (70-130); Carbon Dioxide 19 mmol/L (22-29); Chloride 107 mmol/L (98-107); Estimated GFR-MDRD 30; Glucose 126 mg/dL (70-105); Potassium 4.7 mmol/L (3.5-5.1); Sodium 137 mmol/L (136-145)
[2018-01-07] MEDS ORDERED: CEFAZOLIN 1 GM VIAL SLOW IVP SCH (22:00)
--- NOTE | 2018-01-07 23:09 | OP ---
DATE OF PROCEDURE: 01/07/2018 SURGEON: Susan Hines M.D. BOTTLE FILLER: Wanda Segura PA-C PREOPERATIVE INDICATION: Prevent neurological deterioration. PREOPERATIVE DIAGNOSES: Aneurysmal subarachnoid hemorrhage, early hydrocephalus, poor neurological e xam. POSTOPERATIVE DIAGNOSIS: Aneurysmal subarachnoid hemorrhage, early hydrocephalus, poor neurological exam. OPERATIVE PROCEDURE: Placement of external ventricular drain frontal horn right lateral ventricle. PREOPERATIVE MEDICATION: Ancef 2 grams IV. DRAIN: #1 DRAIN TYPE: External ventricular. OPERATIVE DICTATION: The patient was brought from the ICU to the operating room because he was on an ticoagulation. We wanted to perform the procedure well. Case central was running in the OR with suf ficient light and cautery to control any bleeding. The patient was previously intubated. General an esthesia was induced and the patient's head was positioned on a gel-filled donut shaped head rest wit h the nose directly upright towards the ceiling. Hair was removed with electric clippers from the ri ght side of the scalp. We planned an incision just in front of the coronal suture in the mid pupilla ry line on the right side. Under our planned incision, we infused local anesthetic. The scalp was s terilely prepped and draped. We opened with a 10 blade knife and controlled bleeding with gentle bip olar cautery. We placed a self-retaining retractor and moved the periosteum laterally. High speed d rill was used to fashion a bur hole anterior to the coronal suture on the right side. We coagulated the surface of the dura with bipolar cautery and incised the dura. We opened it in a cruciate fashio n and gently coagulated beneath it. In one single pass, we passed an external ventricular drain into the frontal horn of the right lateral ventricle. There was about 4.5 cm anywhere between 4.5 cm and 7 cm, there was brisk CSF flow. We left it at about 6-7 cm and we tunneled inferiorly through a separate stab incision. We irrigated copiously with bacitracin irrigation. We controlled all ble eding with gentle bipolar cautery. We closed the wound in anatomic layers. We reinforced the exit p oint of the external ventricular drain from the scalp. We tacked it down to multiple areas of the sc alp, so it would not be removed easily. We placed a sterile dressing over. We connected the distal end of the Mares drainage system and left open a 5 cm of water. This was a clean case and no contam ination.
[2018-01-08] MEDS: niCARdipine HCl 25 MG in Sodium Chloride 0.9% 250 ML 240 ML IVPB SCH ×3 (01:59→21:20)
[2018-01-08] MEDS: CEFAZOLIN 1 GM in Sodium Chloride 0.9% 100 ML IVPB SCH ×3 (02:00→21:10)
[2018-01-08] MEDS ORDERED: Acetaminophen 1,000 MG in Premix Bag 1 BAG IVPB PRN (03:21)
[2018-01-08] MEDS: Sodium Chloride 0.9% 1,000 ML IV SCH ×4 (04:40→23:30)
--- NOTE | 2018-01-08 04:47 | CON ---
DATE OF CONSULTATION: 01/07/2018 HISTORY OF PRESENT ILLNESS: Mr. Lopez is a 57-year-old male who presented with altered mental status. He was transported by EMS to the hospital. He was found to have subarachnoid hemorrhage. He was intubated. PAST MEDICAL HISTORY: 1. Remarkable for coronary artery disease. 2. History of atrial fibrillation has been seen by Dr. Ortega in the past. 3. Anticoagulation for atrial fibrillation. 4. History of cystoscopy, placement of a stent for ureteral stone by Dr. Rivas in June of this year. 5. History of atrial fibrillation in 11/[address] Ortega and atrial flutter leading to a redo venous isolation ablation by Dr. Ortega in 04/2016. 6. History of a cardioversion for atrial flutter in 12/[address] Trent. 7. History of chronic kidney disease. 8. History of an IgA nephropathy in the past. 9. History of ejection fraction of the past as low as 20%. It is unclear what his recent EF is. 10. History of myocardial infarction in 04/2015. 11. History of proteinuria. 12. History of gout. 13. History of reflux disease. 14. History of diverticulosis. 15. History of coronary stenting in 04/2015. 16. History of herniorrhaphy. 17. History of left knee arthroscopy. 18. History of bariatric surgery in 2014. 19. History of an appendectomy. SOCIAL HISTORY: He is a nonsmoker, nondrinker, nondrug user. FAMILY HISTORY: Vascular disease. MEDICATIONS: Medications have been reviewed. REVIEW OF SYSTEMS: Unobtainable. He was hypertensive apparently early on. PHYSICAL EXAMINATION: VITAL SIGNS: Blood pressure now is 107/57, heart rate 70, high for respiratory rates in the teens. Oximetry is 100%. HEENT: Left pupils dilated. Right pupil small and nonreactive. NECK: Supple, no lymphadenopathy. Trachea is in the midline. LUNGS: Clear. HEART: Regular rate and rhythm. S1 and S2 are normal. ABDOMEN: Soft and nontender. EXTREMITIES: Without asymmetry. IMPRESSION: Subarachnoid bleed. PLAN: Per Neurosurgery, we will continue mechanical ventilation. Blood gas shows pH 7, CO2 34, pCO2 of 34, pO2 of 252. Electrolytes were unremarkable. Creatinine was 2.28. White count 13.6, hemoglobin 11.8, platelets 104,000 physician's caring for him. Critical care time was 30 minutes. WILFREDO
[2018-01-08 07:18] LABS: Actual Bicarbonate (HCO3a) 17.6 mEq/L (22-28); Base Excess (BEa) -4.8 mEq/L (-2.0 to +3.0); CO2 Tension 24.7 mmHg (35.0-45.0); Carboxyhemoglobin (COHb) 0.6 gm% (0.0-3.0); Hemoglobin (Hb) 10.4 g/dL (14.0-18.0); O2 Tension (PaO2) 146.3 mmHg (80.0-100.0); pH, Arterial 7.47 (7.35-7.45)
[2018-01-08 07:19] LABS: ALV-art Gradient 106.025 (0-20); Calcium, Ionized 1.17 mmol/L (1.12-1.30); Puncture Site LR
--- NOTE | 2018-01-08 07:40 | PRG ---
DATE OF SERVICE: 01/08/2018 I saw Mr. Lopez in our ICU this morning. Yesterday, Mr. Lopez was admitted with aneurysmal subar achnoid hemorrhage from a ruptured basilar tip aneurysm. He had significant blood pressure issues on admission and an extremely poor neurological examination with a GCS of 4. After his first bolus of mannitol yesterday he regained some pupillary reflexes, that effect of mannitol lasted a few hours, h e slowly deteriorated thereafter and we elected to put an external ventricular drain in. The opening pressure is quite high as evidenced by a cerebrospinal fluid coming out under pressure with placemen t of the drain. He also regained some brain stem reflex. CT examination of the brain after the exte rnal ventricular drain suggests good placement and good decompression of the ventricular system. I a m seeing him this morning. There is a fever of 100.5 degrees Fahrenheit currently. Heart rate is in the 100s, blood pressures are in the 110s. On examination, the pupils are sluggish. There is no co rneal on the right. There is on the left. There is a gag. He is breathing over the ventilator. Th ere is extensor posturing. CT examination of the brain revealed multiple areas of hypodensity sugges tive of ischemic events related to this severe vasospasm, does include a OYSTER GRADER territories, LEANDRO territ ories. I am going to have a dave discussion with the family today. I think the outcome from this subarachn oid hemorrhage is going to be poor even with aggressive treatment. When the is in [facility] we will review the case and talk about the prognosis and how long to continue with aggress julianna management and whether she wants aneurysm treated with coiling.
[2018-01-08 08:01] LABS: #Lymphocytes 0.8 thou/uL (1.20-3.40); #Monocytes 1.5 thou/uL (0.11-0.59); #Neutrophils 14.4 thou/uL (1.40-6.50); %Eosinophils 0.1 % (0.0-10.0); %Lymphocytes 4.8 % (21.0-51.0); %Monocytes 9.1 % (0.0-10.0); Hemoglobin 10.4 g/dL (14.0-18.0); Mean Corpuscular HGB CONC 32.8 g/dL (32.0-36.0); Mean Corpuscular Hemoglobin 27.4 pg (27.0-31.0); Mean Corpuscular Volume 83.5 fL (78.0-98.0); Mean Platelet Volume 7.5 fL (7.4-10.4); Platelet Count 203 thou/uL (130-400); RBC Distribution Width 12.4 % (11.5-14.5); Red Blood Cell (RBC) Count 3.79 mill/uL (4.70-6.10); White Blood Cell (WBC) Count 16.8 thou/uL (4.8-10.8)
[2018-01-08 08:17] LABS: Anion Gap 10 mmol/L (10-20); BUN (Urea Nitrogen) 27 mg/dL (8.4-25.7); Calc. Creatinine Clearance 49 mL/min (70-130); Carbon Dioxide 21 mmol/L (22-29); Chloride 111 mmol/L (98-107); Estimated GFR-MDRD 28; Glucose 131 mg/dL (70-105); Potassium 4.1 mmol/L (3.5-5.1); Sodium 138 mmol/L (136-145)
--- NOTE | 2018-01-08 08:44 | CT ---
PRELIMINARY REPORT/[facility]/EMERGENCY AFTER HOURS PROCEDURE: EXAM: CT Head Without Intravenous Contrast CLINICAL HISTORY: 57 years old, male; Condition or disease; Other: Sah; Prior surgery; Patient HX: F/u sah TECHNIQUE: Axial computed tomography images of the head/brain without intravenous contrast. COMPARISON: CT Brain WO Con 01/07/2018 6:00 PM FINDINGS: As before, there is mild diffuse subarachnoid blood, as well as blood within the lateral, third, and fourth ventricles. Probably no significant overall change in this appearance. No definite new hemorrhage in the interval. No significant midline shift. Right ventriculostomy catheter is not significantly changed in position. Ventricles appear decompressed, smaller than on the prior exam. No hydrocephalus. Low attenuation areas involving the left basal ganglia region, brainstem, and posterior temporal and occipital lobes bilaterally, similar to prior exam. Findings are suspicious for areas of subacute inf arct. MRI could be more sensitive/specific for detection, and also for distinguishing between old and subac orlin infarcts, as clinically directed. Old infarct again suspected in the right cerebellum. No definite acute skull fracture. Small amounts of intracranial gas. Included paranasal sinuses are essentially clear. IMPRESSION: Continued subarachnoid and intraventricular blood, similar to prior exam. No definite new hemorrhage in the interval. Low attenuation areas involving the left basal ganglia region, brainstem, and posterior temporal and occipital lobes bilaterally, similar to prior exam. Findings are suspicious for areas of subacute inf arct. No significant midline shift. Interval decrease in ventricle size, see above. Thank you for allowing us to participate in the care of your patient. Dictated and Authenticated by: Alexander Sheldon MD 01/08/2018 4:27 AM Central Time ([place] & [place]) FINAL REPORT HEAD CT NONCONTRAST: COMPARISON: Previous day. FINDINGS: Agree with the preliminary interpretation provided above. IMPRESSION: Diffuse subarachnoid and intraventricular hemorrhage. There is multifocal cytotoxic edema as discuss ed above, compatible with multifocal subacute infarctions. POS: HARVINDER
[2018-01-08] MEDS: Metoprolol Tartrate 50 MG TAB PO SCH ×2 (08:54→21:13)
[2018-01-08] MEDS: Pantoprazole 40 MG VIAL IVP SCH ×2 (08:54→21:13)
[2018-01-08] MEDS ORDERED: Mannitol 12.5 GM/50 ML IV SCH ×2 (10:30→16:15)
--- NOTE | 2018-01-08 13:29 | PRG ---
DATE OF SERVICE: 01/08/2018 SUBJECTIVE: Mr. Lopez now has reactive Pupils, they are equal. His swears that he follow com mands with his left side repeatedly to her commands. He has limited following her commands per the kamla saucedo's report, but that are not consistent. His ICPs elevated at 24. His CSF was draining about 13 mL an hour. PHYSICAL EXAMINATION: VITAL SIGNS: Blood pressure 115/48, heart rate 70, respiratory rate 17, oximetry is 100%. LUNGS: Clear. HEART: Regular rhythm. ABDOMEN: Soft. EXTREMITIES: Without asymmetry. LABORATORY DATA: PH 7.47, CO2 of 24, pO2 146, IMV of 12. He is actually breathing faster than 12. Sodium 138, potassium 4.1, chloride 111, bicarbonate 21, BUN 27, creatinine 2.4. White count 16.8, h emoglobin 10.4, platelets 203. IMPRESSION: Subarachnoid bleed. The ventriculostomy in place. Head CT done this morning showed subarachnoid and intraventricular blood. No new hemorrhage, subacut e infarct areas in the left basal ganglia brainstem and posterior temporal and occipital lobes were s een. The ventricle size is smaller. PLAN: We will continue ventilatory support, supportive care. Critical care time was 30 minutes.
[2018-01-08] MEDS: Morphine 4 MG/ML VIAL SLOW IVP PRN (15:09)
[2018-01-08] MEDS: Atorvastatin Calcium 40 MG TAB PO SCH (21:13)
[2018-01-09] MEDS: CEFAZOLIN 1 GM in Sodium Chloride 0.9% 100 ML IVPB SCH ×3 (01:26→17:11)
[2018-01-09] MEDS: niCARdipine HCl 25 MG in Sodium Chloride 0.9% 250 ML 240 ML IVPB SCH ×2 (02:42→20:37)
[2018-01-09 06:11] LABS: #Monocytes 1.8 thou/uL (0.11-0.59); #Neutrophils 13.7 thou/uL (1.40-6.50); %Basophils 0.1 % (0.0-1.0); %Eosinophils 0.1 % (0.0-10.0); %Monocytes 10.8 % (0.0-10.0); Hemoglobin 10.5 g/dL (14.0-18.0); Mean Corpuscular HGB CONC 33.3 g/dL (32.0-36.0); Mean Corpuscular Hemoglobin 28.4 pg (27.0-31.0); Mean Corpuscular Volume 85.4 fL (78.0-98.0); Mean Platelet Volume 7.7 fL (7.4-10.4); Platelet Count 222 thou/uL (130-400); RBC Distribution Width 12.5 % (11.5-14.5); Red Blood Cell (RBC) Count 3.68 mill/uL (4.70-6.10); White Blood Cell (WBC) Count 16.5 thou/uL (4.8-10.8)
[2018-01-09 06:32] LABS: Anion Gap 12 mmol/L (10-20); BUN (Urea Nitrogen) 26 mg/dL (8.4-25.7); Calc. Creatinine Clearance 57 mL/min (70-130); Carbon Dioxide 16 mmol/L (22-29); Chloride 116 mmol/L (98-107); Estimated GFR-MDRD 33; Glucose 112 mg/dL (70-105); Potassium 4.1 mmol/L (3.5-5.1); Sodium 140 mmol/L (136-145)
[2018-01-09] MEDS: Sodium Chloride 0.9% 1,000 ML IV SCH ×3 (08:40→23:16)
[2018-01-09] MEDS: Pantoprazole 40 MG VIAL IVP SCH ×2 (08:41→20:35)
[2018-01-09] MEDS: Metoprolol Tartrate 50 MG TAB PO SCH ×2 (08:41→20:35)
--- NOTE | 2018-01-09 09:56 | PRG ---
DATE OF SERVICE: 01/09/2018 SUBJECTIVE: Mr. Lopez is starting his 3rd hospital day with us. He is about 48 hours from aneurys mal subarachnoid hemorrhage from a basilar tip aneurysm. Yesterday there was some improvement with t he withdrawal of the left upper extremity by the afternoon. He only had posturing previously. Mr. Andrew quevedo required one dose of mannitol yesterday afternoon, but his ICPs have been less than 20 since. His drain is working well. Mr. Lopez was seen in the ICU this morning. He has had no fevers. Blood pressure has been 110s to 120s. On examination, with enough of the noxious stimulus, the right eye opens slightly. There is a weak withdrawal of the left upper extremity. There is extensor posturing on the right. Cranial ne rve reflexes are working. Sodium is 138. Hemoglobin is 10. Mr. Lopez is going to start his vasospasm and he is already at risk for it. In fact, he had early ischemic deficits from spasm in multiple territories. I explained this to the family yesterday, outl ine reasons very optimistic about a return to independence. They expressed to me that Mr. Hale ies surprise to everyone in recovering from a massive myocardial infarction forward. We will c ontinue with aggressive care. We will ensure that his medical management optimizes his chances for r ecovery. Dr. Byrd is aware of the case and may be able to coil his aneurysm tomorrow or Thursday. We will need to have it coiled to aggressively treat any vasospasm that could happen.
--- NOTE | 2018-01-09 09:56 | PRG ---
DATE OF SERVICE: 01/09/2018 PULMONARY AND CRITICAL CARE PROGRESS NOTE Thirty-five minutes critical care time. SUBJECTIVE: The patient remains intubated on mechanical ventilation. Neurologically, he is off eleanor tion. His eyes are deviated to the left. Pupils are 3 mm and reactive. He has some slight move in his left hand. Otherwise, he is flaccid. PHYSICAL EXAMINATION: HEENT: Otherwise unremarkable. NECK: No JVD. CHEST: Clear without wheezing. CARDIAC: S1, S2 regular, without murmur. ABDOMEN: Soft, obese, nontender, nondistended. EXTREMITIES: No clubbing, cyanosis, or edema. LABORATORY DATA: White blood cell count 16.5, hematocrit 31.5, platelet count 222. Sodium 140, pota ssium 4.1, chloride 116, CO2 16, BUN 26, creatinine 2.0 and glucose 112. ASSESSMENT: 1. Subarachnoid hemorrhage. 2. Acute respiratory failure requiring mechanical ventilation. 3. Non-anion gap metabolic acidosis, which may be from normal saline infusion. PLAN: 1. Start enteral tube feeds. 2. Continue mechanical ventilation. 3. Check ABG tomorrow. 4. Further care per neurosurgical team.
[2018-01-09] MEDS ORDERED: Prevnar 13-Val Conj/PF 0.5 ML SYRINGE IM ONE (11:45)
--- NOTE | 2018-01-09 15:20 | CON ---
DATE OF CONSULTATION: 01/09/2018 NEPHROLOGY CONSULTATION REASON FOR CONSULTATION: Elevated creatinine. HISTORY OF PRESENT ILLNESS: This is a very pleasant 57-year-old gentleman who was admitted for subar achnoid hemorrhage being seen by her family request. The patient is intubated. His creatinine has i mproved from 2.4 yesterday to 2.0 today. PAST MEDICAL HISTORY: Coronary artery disease, atrial fibrillation, cystoscopy, cardioversion, IgA n ephropathy, gout, proteinuria, CKD, appendectomy, bariatric surgery. SOCIOECONOMIC HISTORY: No alcohol or drug use. FAMILY HISTORY: Negative for ESRD. ALLERGIES: Reviewed. REVIEW OF SYSTEMS: Unobtainable. PHYSICAL EXAMINATION: GENERAL: Patient is resting. VITAL SIGNS: Afebrile, pulse 70, breathing at 16, blood pressure was 110/70. HEAD/NECK: Normocephalic. Atraumatic. EYES: EOMI. No deformity. EARS: Clear. No ulcers. NOSE: Intact. No lesions. MOUTH: Clear. No discharge. THROAT: Clear. No exudate. LUNGS: Clear. No crackles. CARDIAC: S1, S2. No rub. ABDOMEN: Benign. BS+. GENITALIA/RECTUM: Juárez absent. BACK/EXTREMITIES: Edema 0+ Ulcer- NEUROLOGICAL: Patient is resting. SKIN: Rash- Bruise- LYMPHATICS: Edema- Ulcer- LABORATORY DATA: Show creatinine 2.0. ASSESSMENT AND RECOMMENDATIONS: 1. Acute kidney injury with chronic kidney disease stage 3, stable, multifactorial. No indication f or dialysis. 2. Hypertension, stable. 3. Medications based on glomerular filtration rate are appropriate. I will see the patient on an as needed basis.
[2018-01-09] MEDS ORDERED: Sodium Chloride 0.9% 10 ML ONE ×2 (20:02→21:10)
[2018-01-09] MEDS: Atorvastatin Calcium 40 MG TAB PO SCH (20:35)
--- NOTE | 2018-01-09 20:52 | EKG ---
Test Reason : AMS Blood Pressure : / mmHG Vent. Rate : 075 BPM Atrial Rate : 075 BPM P-R Int : 218 ms QRS Dur : 094 ms QT Int : 390 ms P-R-T Axes : 000 -17 050 degrees QTc Int : 435 ms Atrial-paced rhythm with prolonged AV conduction Inferior infarct , age undetermined Cannot rule out Anterior infarct , age undetermined Abnormal ECG Confirmed by BECKY ZHAO ([id number]), makeup editor SILVER MCGILL ([id number]) on 01/09/2018 8:51:39 PM Referred By: CECE Confirmed By:BECKY ZHAO
[2018-01-09] MEDS ORDERED: Mannitol 12.5 GM/50 ML SLOW IVP SCH (21:45)
[2018-01-10] MEDS: CEFAZOLIN 1 GM in Sodium Chloride 0.9% 100 ML IVPB SCH ×3 (02:13→18:35)
[2018-01-10 06:09] LABS: Anion Gap 11 mmol/L (10-20); BUN (Urea Nitrogen) 33 mg/dL (8.4-25.7); Calc. Creatinine Clearance 61 mL/min (70-130); Carbon Dioxide 19 mmol/L (22-29); Chloride 115 mmol/L (98-107); Estimated GFR-MDRD 36; Glucose 140 mg/dL (70-105); Potassium 3.8 mmol/L (3.5-5.1); Sodium 141 mmol/L (136-145)
[2018-01-10 06:11] LABS: #Eosinphils 0.1 thou/uL (0.0-0.7); #Lymphocytes 0.9 thou/uL (1.20-3.40); #Neutrophils 14.4 thou/uL (1.40-6.50); %Basophils 0.1 % (0.0-1.0); %Eosinophils 0.3 % (0.0-10.0); %Lymphocytes 5.2 % (21.0-51.0); %Monocytes 11.5 % (0.0-10.0); %Neutrophils 82.9 % (42.0-75.0); Hemoglobin 9.9 g/dL (14.0-18.0); Mean Corpuscular HGB CONC 32.6 g/dL (32.0-36.0); Mean Corpuscular Hemoglobin 27.7 pg (27.0-31.0); Mean Platelet Volume 7.8 fL (7.4-10.4); Platelet Count 206 thou/uL (130-400); RBC Distribution Width 12.5 % (11.5-14.5); Red Blood Cell (RBC) Count 3.57 mill/uL (4.70-6.10); White Blood Cell (WBC) Count 17.3 thou/uL (4.8-10.8)
[2018-01-10] MEDS: niCARdipine HCl 25 MG in Sodium Chloride 0.9% 250 ML 240 ML IVPB SCH (06:16)
[2018-01-10 06:53] LABS: CO2 Tension 28.4 mmHg (35.0-45.0); O2 Tension (PaO2) 67.8 mmHg (80.0-100.0); pH, Arterial 7.44 (7.35-7.45)
[2018-01-10 06:54] LABS: Actual Bicarbonate (HCO3a) 18.9 mEq/L (22-28); Base Excess (BEa) -4.2 mEq/L (-2.0 to +3.0); Carboxyhemoglobin (COHb) 0.8 gm% (0.0-3.0); Potassium - ABG Lab 3.7 mmol/L (3.70-5.30)
[2018-01-10 06:55] LABS: Puncture Site LR
[2018-01-10] MEDS: Metoprolol Tartrate 50 MG TAB PO SCH ×2 (09:24→20:24)
[2018-01-10] MEDS: Pantoprazole 40 MG VIAL IVP SCH ×2 (09:24→20:24)
--- NOTE | 2018-01-10 09:28 | ULT ---
BILATERAL LOWER EXTREMITY VENOUS DUPLEX ULTRASOUND INCLUDING COLOR AND SPECTRAL DOPPLER IMAGING: HISTORY: A 57-year-old male with a history of inactivity. Patient in ICU. FINDINGS: Exam performed from groin to ankle including visualization of the greater saphenous, common femoral, superficial femoral, pleural fluid, popliteal, trifurcation, and posterior tibial vein regions. Ther e is phasic flow at all levels with normal compressibility and normal augmentation. No intraluminal thrombus. IMPRESSION: No evidence for deep venous thrombosis. POS: UNIQUE
--- NOTE | 2018-01-10 09:32 | PRG ---
DATE OF SERVICE: 01/10/2018 Thirty-five minutes critical care time. SUBJECTIVE: The patient remains intubated on mechanical ventilation. There have been no acute khan es overnight. PHYSICAL EXAMINATION: VITAL SIGNS: Temperature is 99.7, pulse 93, blood pressure 167/71, currently requiring Cardene drip for blood pressure management. A 24-hour intake 4663, output 3885. HEENT: He has a drain in place in his right baptism region. NECK: No adenopathy, no JVD. LUNGS: Clear without wheezing. CARDIAC: S1 and S2 regular. ABDOMEN: Soft, nontender. Bowel sounds positive. EXTREMITIES: No clubbing, cyanosis, or edema. LABORATORY DATA: Sodium 141, potassium 3.8, chloride 115, CO2 19, BUN 33, creatinine 1.9, glucose 14 0, pH 7.44, pCO2 28, pO2 67 on SIMV rate 12, tidal volume 550, PEEP 5, pressure support 10, FiO2 40%. White blood cell count 17.3, hematocrit 30.4, platelet count 206. ASSESSMENT: 1. Subarachnoid hemorrhage. 2. Acute respiratory failure requiring mechanical ventilation. 3. Improved non-anion gap metabolic acidosis and improved renal function. PLAN: 1. Continue mechanical ventilation at current settings. 2. Continue enteral feeds. 3. Continue Cardene drip. 4. Would expect tracheostomy and PEG tube will be needed soon.
--- NOTE | 2018-01-10 10:50 | PRG ---
DATE OF SERVICE: 01/10/2018 SUBJECTIVE: I saw Mr. Clarence Lopez in his ICU room this morning. Yesterday evening, I came in and m simone some adjustments to his external ventricular drain. It is now functioning quite well. He got a half gram per kilo of mannitol last night. His T-max recorded overnight is 100 degrees Fahrenheit. His blood pressures have been in 130s to 150s. The CSF is draining around an average of 16 mL an rianna r. Mr. Lopez neurological examination is the same as it has been enough stimulation, he open s the right eyelid marginally. He will withdraw the left hand to painful stimulus applied to the shana l bed. He does not localize, he does not follow commands. The right side has extensor posturing. Nilam Lopez sodium is 141 after the dose of mannitol, it was 140 yesterday. Hemoglobin is 9.9. His w logan cell count is trending upward to 17.3. In the coming few days, we are going where vasospasm is significant risk. In order to treat th at vasospasm, we will use hypertonic saline for an increase in the intravascular volume. He has hype rtension. He is already hemodiluted to a hemoglobin of less than 10. In order to initiate this ther apy be nice to have the aneurysm secured, and therefore we will consider the endovascular procedure. However, the family is adamant that Mr. Lopez would not want prolonged or [facility] is dependent for care and they may elect not to proceed with treatment. I will pose the question to them today for remaining on the aggressive route and endovascular occlusion of the a neurysm would be the first step.
[2018-01-10] MEDS: Sodium Chloride 0.9% 1,000 ML IV SCH ×3 (10:53→21:59)
[2018-01-10 13:52] LABS: Sodium 143 mmol/L (136-145)
[2018-01-10] MEDS: Morphine 4 MG/ML VIAL SLOW IVP PRN (14:23)
[2018-01-10] MEDS: Propofol 1,000 MG/100 ML VIAL IV PRN (14:42)
[2018-01-10] MEDS: Acetaminophen 650 MG in Premix Bag 1 BAG IVPB PRN ×2 (15:04→21:04)
[2018-01-10] MEDS ORDERED: CEFAZOLIN 1 GM VIAL ONE (18:33)
[2018-01-10] MEDS: Atorvastatin Calcium 40 MG TAB PO SCH (20:24)
[2018-01-11] MEDS: CEFAZOLIN 1 GM in Sodium Chloride 0.9% 100 ML IVPB SCH ×3 (01:36→17:30)
[2018-01-11] MEDS: Sodium Chloride 0.9% 1,000 ML IV SCH ×3 (04:12→17:29)
[2018-01-11] MEDS: Acetaminophen 650 MG in Premix Bag 1 BAG IVPB PRN ×2 (04:16→10:23)
[2018-01-11 04:36] LABS: #Lymphocytes 0.9 thou/uL (1.20-3.40); #Monocytes 1.3 thou/uL (0.11-0.59); #Neutrophils 13.1 thou/uL (1.40-6.50); %Basophils 0.1 % (0.0-1.0); %Eosinophils 0.1 % (0.0-10.0); %Lymphocytes 5.6 % (21.0-51.0); %Monocytes 8.4 % (0.0-10.0); %Neutrophils 85.8 % (42.0-75.0); Hemoglobin 9.4 g/dL (14.0-18.0); Mean Corpuscular HGB CONC 33.9 g/dL (32.0-36.0); Mean Corpuscular Hemoglobin 29.2 pg (27.0-31.0); Mean Corpuscular Volume 86.1 fL (78.0-98.0); Mean Platelet Volume 7.8 fL (7.4-10.4); Platelet Count 182 thou/uL (130-400); RBC Distribution Width 12.7 % (11.5-14.5); Red Blood Cell (RBC) Count 3.22 mill/uL (4.70-6.10); White Blood Cell (WBC) Count 15.2 thou/uL (4.8-10.8)
[2018-01-11 04:46] LABS: Anion Gap 10 mmol/L (10-20); BUN (Urea Nitrogen) 35 mg/dL (8.4-25.7); Calc. Creatinine Clearance 63 mL/min (70-130); Calcium 8.8 mg/dL (7.8-10.44); Carbon Dioxide 20 mmol/L (22-29); Chloride 116 mmol/L (98-107); Estimated GFR-MDRD 37; Glucose 119 mg/dL (70-105); Potassium 4.1 mmol/L (3.5-5.1); Sodium 142 mmol/L (136-145)
[2018-01-11 06:51] LABS: Actual Bicarbonate (HCO3a) 20.4 mEq/L (22-28); Base Excess (BEa) -3.6 mEq/L (-2.0 to +3.0); CO2 Tension 33.3 mmHg (35.0-45.0); Carboxyhemoglobin (COHb) 0.4 gm% (0.0-3.0); Hemoglobin (Hb) 9.8 g/dL (14.0-18.0); pH, Arterial 7.41 (7.35-7.45)
[2018-01-11 06:52] LABS: ALV-art Gradient 165.375 (0-20); Calcium, Ionized 1.23 mmol/L (1.12-1.30); Puncture Site RR
--- NOTE | 2018-01-11 07:52 | PRG ---
DATE OF SERVICE: 01/11/2018 I saw Mr. Lopez this morning. There were no events yesterday. He had a fever that required coolin g blanket and Tylenol administration, but other than that things were stable. His drain continues to be a bit sluggish, but it drains, blood products within the tubing are the culprit. I am seeing Mr. Lopez this morning in his ICU room. His blood pressures have been in the 120s to 150s. His heart rates are in the 70s. His T-max yesterday was 100 degrees Fahrenheit (nursing report of 101.5 degre es Fahrenheit, but it is not recorded in the electronic record). On examination, Mr. Lopez opens h is right eyelid to stimulus. He is at best semi purposeful with the left hand. He does withdraw. T here is extensor posturing along the entire right side. The CSF drainage is averaging about 14 mL an hour. Cultures were sent yesterday at the time of his fever and they are pending. 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 I had a discussion with Mr. Lopez' yesterday and she would like to proceed and give him some chance to recover. She is well aware that the likely outcome is dependence and chcf placement, but e would like to get the aneurysm treated. This will allow us to get the blood pressure up in the ann e of vasospasm, for which he is at risk for.
[2018-01-11] MEDS: Metoprolol Tartrate 50 MG TAB PO SCH ×2 (08:02→20:45)
[2018-01-11] MEDS: Pantoprazole 40 MG VIAL IVP SCH ×2 (08:02→20:46)
[2018-01-11] MEDS: Propofol 1,000 MG/100 ML VIAL IV PRN (16:00)
--- NOTE | 2018-01-11 17:58 | PRG ---
DATE OF SERVICE: 01/11/2018 SUBJECTIVE: Clarence Lopez does appear to have improved much over the weekend. He does have a little more eye opening spontaneously. OBJECTIVE: VITAL SIGNS: Blood pressure has been 140-150 range. LUNGS: Clear. HEART: Regular rhythm. ABDOMEN: Soft. LABORATORY DATA: White count 15.2, hemoglobin 9.4, platelets 182. Sodium 142, potassium 4.1, chlori de 116, bicarbonate 20, BUN 35, creatinine 1.86. IMPRESSION: 1. Subarachnoid bleed. 2. Hypertension. 3. Acute on chronic kidney disease. Family decided not to go ahead with a coiling procedure. I do not want to continue supportive care f or now. Critical care time was 30 minutes.
[2018-01-11] MEDS: Atorvastatin Calcium 40 MG TAB PO SCH (20:45)
[2018-01-12] MEDS: Sodium Chloride 0.9% 1,000 ML IV SCH ×4 (00:39→21:47)
[2018-01-12] MEDS: CEFAZOLIN 1 GM in Sodium Chloride 0.9% 100 ML IVPB SCH ×3 (01:43→17:15)
[2018-01-12] MEDS: niCARdipine HCl 25 MG in Sodium Chloride 0.9% 250 ML 240 ML IVPB SCH ×3 (02:07→20:20)
[2018-01-12] MEDS: Propofol 1,000 MG/100 ML VIAL IV PRN ×2 (05:09→15:38)
[2018-01-12 05:39] LABS: #Eosinphils 0.1 thou/uL (0.0-0.7); #Lymphocytes 1.1 thou/uL (1.20-3.40); #Monocytes 1.3 thou/uL (0.11-0.59); #Neutrophils 9.7 thou/uL (1.40-6.50); %Basophils 0.3 % (0.0-1.0); %Eosinophils 0.5 % (0.0-10.0); %Lymphocytes 8.7 % (21.0-51.0); %Monocytes 10.7 % (0.0-10.0); %Neutrophils 79.8 % (42.0-75.0); Hemoglobin 10.1 g/dL (14.0-18.0); Mean Corpuscular HGB CONC 30.7 g/dL (32.0-36.0); Mean Corpuscular Hemoglobin 26.4 pg (27.0-31.0); Mean Platelet Volume 8.4 fL (7.4-10.4); Platelet Count 227 thou/uL (130-400); RBC Distribution Width 12.7 % (11.5-14.5); Red Blood Cell (RBC) Count 3.82 mill/uL (4.70-6.10); White Blood Cell (WBC) Count 12.1 thou/uL (4.8-10.8)
[2018-01-12 05:47] LABS: Anion Gap 14 mmol/L (10-20); BUN (Urea Nitrogen) 37 mg/dL (8.4-25.7); Calc. Creatinine Clearance 71 mL/min (70-130); Carbon Dioxide 14 mmol/L (22-29); Chloride 118 mmol/L (98-107); Estimated GFR-MDRD 42; Glucose 121 mg/dL (70-105); Potassium 3.7 mmol/L (3.5-5.1); Sodium 142 mmol/L (136-145)
[2018-01-12] MEDS ORDERED: Acetaminophen 650 MG/20.3 ML UDCUP ONE ×2 (07:51→07:53)
--- NOTE | 2018-01-12 11:22 | PRG ---
DATE OF SERVICE: 01/12/2018 Mr. Lopez is beginning his 6th hospital day with us. He had a basilar tip aneurysm rupture, causing subarachnoid hemorrhage. He has had poor clinical grade. Yesterday his discussed his care and is considering palliative care rather than intervention for his aneurysm. A coiling procedure yesterday was therefore canceled and postponed indefinitely. Mr. Lopez vital signs have been relatively stable, although his blood pressure has climbed to range where he needed IV medication yesterday. On examination this morning there is semi purposeful movement in the left hand, at best. There is very weak withdrawal. With enough stimulus to the midline there is some lid opening on the right side. Otherwise, there is extensor posturing on the right hemibody. I am awaiting the sodium results from this morning. I am going to need to personally visit with the patient's today. If she truly does not want any aggressive care then we should transition to comfort measures. If she would like us to give him a chance medically to survive the subarachnoid hemorrhage, we will have to let his blood pressure go up to prevent vasospasm and simply cannot let it get too high with an unsecured aneurysm. I will discuss with the patient's family preferences for ongoing care and make decisions after that discussion. 15min MTDD
[2018-01-12] MEDS: Metoprolol Tartrate 50 MG TAB PO SCH ×2 (14:53→20:17)
[2018-01-12] MEDS: Pantoprazole 40 MG VIAL IVP SCH ×2 (14:55→20:17)
[2018-01-12] MEDS: Acetaminophen 650 MG/20.3 ML UDCUP PO PRN ×2 (15:38→23:48)
--- NOTE | 2018-01-12 19:19 | PRG ---
DATE OF SERVICE: 01/12/2018 Mr. Lopez has not improved neurologically. The family is contemplating withdrawal of support later this week. Apparently, he has a daughter ___ __ and they are waiting for the daughter to get here. PHYSICAL EXAMINATION: VITAL SIGNS: His heart rate is in 70s, blood pressure 128/55, temperature is 100%. LUNGS: Clear. HEART: Regular rhythm. ABDOMEN: Soft. LABORATORY DATA: All cultures are negative so far. White count 12.1, hemoglobin 10.1, platelets 227. Sodium 142, potassium 3.7, chloride 118, bicarbona te 14, BUN 37, creatinine 1.68. IMPRESSION: 1. Subarachnoid bleed. 2. Mild hyperosmolar state, iatrogenic. 3. 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 4. Prior anticoagulation for atrial fibrillation. PLAN: Continue supportive care in accordance with the family wishes.
[2018-01-12] MEDS: Atorvastatin Calcium 40 MG TAB PO SCH (20:17)
[2018-01-12] MEDS ORDERED: Pancrelipase DR 12000 1 CAP FS PRN (21:21)
[2018-01-12] MEDS ORDERED: Sodium Bicarbonate Tab 325 MG TAB PER TUBE PRN (21:21)
[2018-01-13] MEDS: niCARdipine HCl 25 MG in Sodium Chloride 0.9% 250 ML 240 ML IVPB SCH ×5 (00:12→15:53)
[2018-01-13 03:47] LABS: Anion Gap 12 mmol/L (10-20); BUN (Urea Nitrogen) 36 mg/dL (8.4-25.7); Calc. Creatinine Clearance 66 mL/min (70-130); Calcium 8.8 mg/dL (7.8-10.44); Carbon Dioxide 19 mmol/L (22-29); Chloride 117 mmol/L (98-107); Estimated GFR-MDRD 39; Glucose 125 mg/dL (70-105); Potassium 3.9 mmol/L (3.5-5.1); Sodium 144 mmol/L (136-145)
[2018-01-13] MEDS: CEFAZOLIN 1 GM in Sodium Chloride 0.9% 100 ML IVPB SCH ×3 (03:58→18:49)
[2018-01-13] MEDS: Sodium Chloride 0.9% 1,000 ML IV SCH ×3 (03:59→15:54)
[2018-01-13 04:33] LABS: Band 6 % (5-11); Hemoglobin 9.3 g/dL (14.0-18.0); Lymphocytes 13 % (21-51); MDiff Complete? YES; Mean Corpuscular HGB CONC 33.2 g/dL (32.0-36.0); Mean Corpuscular Volume 84.6 fL (78.0-98.0); Mean Platelet Volume 7.9 fL (7.4-10.4); Metamyelocyte 2 % (0-0); Monocytes 9 % (0-10); Myelocyte 2 % (0-0); Neutrophil 68 % (42-75); PLT Morphology Comment Appears Adequate; Platelet Count 247 thou/uL (130-400); RBC Distribution Width 12.5 % (11.5-14.5); Red Blood Cell (RBC) Count 3.31 mill/uL (4.70-6.10)
[2018-01-13] MEDS: Propofol 1,000 MG/100 ML VIAL IV PRN ×2 (04:34→13:29)
[2018-01-13] MEDS: Acetaminophen 650 MG/20.3 ML UDCUP PO PRN ×2 (06:43→20:27)
[2018-01-13 07:53] VITALS: TEMP 100
[2018-01-13] MEDS: Metoprolol Tartrate 50 MG TAB PO SCH ×2 (08:18→20:27)
[2018-01-13] MEDS: Pantoprazole 40 MG VIAL IVP SCH ×2 (08:18→20:27)
--- NOTE | 2018-01-13 09:15 | PRG ---
DATE OF SERVICE: 01/13/2018 SUBJECTIVE: Mr. Clarence Lopez is still in the ICU. He is starting his 7th hospital day with us. 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 Overnight, the drain continues to work. Vital signs have been relatively stable. On examination, Mr Sincere Lopez opens his right eye to stimulus. He has some purposeful motion in the fingers on the left side, does not follow commands. He very weakly withdraws on the left hand and on the right side, the re is only extensor posturing. Sodium this morning is 143. I had a long discussion with Mr. Lopez's yesterday. She and her family will make a final deci mary kate today, but they are leaning towards withdrawal of care and comfort measures only. When they mio e that decision, the external ventricular drain can be clamped and removed. He can be extubated and put on comfort measures. A transfer to inpatient hospice would be warranted. I expect that he will continue to breathe and likely survive for a day or 2, but not much beyond that. If they changed the ir mind and want aggressive treatment, we will arrange coiling of the aneurysm.
[2018-01-13] MEDS ORDERED: hydrALAZINE 20 MG/ML VIAL SLOW IVP PRN (12:18)
[2018-01-13] MEDS ORDERED: Amlodipine 10 MG TAB PO SCH (12:30)
[2018-01-13 15:17] VITALS: BMI 32.0
--- NOTE | 2018-01-13 18:07 | PRG ---
DATE OF SERVICE: 01/13/2018 SUBJECTIVE: Jessica is clinically unchanged. OBJECTIVE: VITAL SIGNS: His heart rates in the 80s, blood pressure 140/68, temperature is 100, respiratory rate is 12. LUNGS: Clear. HEART: Regular rhythm. ABDOMEN: Soft. LABORATORY DATA: White count 11.0, hemoglobin 9.3, platelets 247. Sodium 144, creatinine 3.9, chlor alan 117, bicarbonate 19, BUN 36, creatinine 1.81, glucose 125. IMPRESSION: Respiratory failure after subarachnoid bleed with multiple vasospasm mediated cerebrovas cular accidents, answered all of our questions. She is waiting for another family member to co me into town, they have a plan do tentatively withdraw support tomorrow and continue with comfort vipul sures. No reason to continue with blood draws at this point. We will await their decision in the mo rning. Critical care time was 30 minutes.
[2018-01-13] MEDS: Atorvastatin Calcium 40 MG TAB PO SCH (20:27)
[2018-01-14] MEDS: Sodium Chloride 0.9% 1,000 ML IV SCH ×2 (02:41→09:04)
[2018-01-14] MEDS: Propofol 1,000 MG/100 ML VIAL IV PRN (02:41)
[2018-01-14] MEDS: niCARdipine HCl 25 MG in Sodium Chloride 0.9% 250 ML 240 ML IVPB SCH ×2 (02:42→09:04)
[2018-01-14] MEDS: CEFAZOLIN 1 GM in Sodium Chloride 0.9% 100 ML IVPB SCH ×2 (02:44→11:05)
--- NOTE | 2018-01-14 07:25 | PRG ---
DATE OF SERVICE: 01/14/2018 I visited Mr. Lopez in his ICU room this morning. He is starting his 7th hospital day with us afte r a basilar tip aneurysm rupture and aneurysmal subarachnoid hemorrhage of poor clinical grade. The and family met and discussed the options for the last day or more and have elected to withdr aw support and transfer him to comfort care measures later today. Mr. Lopez neurological examination is unchanged. EVD is still in place. We will remove the external ventricular drain this morning. I spoke to Leatha, Mr. Lopez , dir ectly over the phone this morning. She reiterates her decision and we will remove the EVD. In the l ate morning they will remove that endotracheal tube and transfer him from the ICU to an inpatient [facility] pice room where he will get comfort care measures.
[2018-01-14 07:54] VITALS: BP 134/70
[2018-01-14] MEDS: Acetaminophen 650 MG/20.3 ML UDCUP PO PRN (09:20)
[2018-01-14] MEDS: Metoprolol Tartrate 50 MG TAB PO SCH (09:20)
[2018-01-14] MEDS: Pantoprazole 40 MG VIAL IVP SCH (09:22)
[2018-01-14] MEDS ORDERED: Morphine 10 MG/ML VIAL SLOW IVP PRN (10:45)
[2018-01-14] MEDS ORDERED: Amlodipine 10 MG TAB PO SCH (14:00)
--- NOTE | 2018-01-14 18:04 | PRG ---
DATE OF SERVICE: 01/14/2018 SUBJECTIVE: His family elected to do support today, this done earlier today. He had respirations af terwards, it was explained to the family that this could not be eliminated with morphine. He was giv en morphine for comfort, but was not awaken, this was given more for the family then for the patient. He never has awakened completely. He gradually had a decline in respiratory effort throughout the day and then developed pulseless elec trical activity there was no Doppler pulse and he was pronounced and is to be released to the [facility] home. The family was at the bedside.
== END 2018-01-14 12:45 | disposition expired | DRG 23 ==
LOC: ERS 06:09 → CCU 07:45
PROVIDERS: ADMIT Neurological Surgery; ATTEND Neurological Surgery
PROC: 30283B1 Transfusion of Nonautologous 4-Factor Prothrombin Complex Concentrate into Vein, Percutaneous Approach (ICD-10-PCS; principal; 2018-01-07)
PROC: 009630Z Drainage of Cerebral Ventricle with Drainage Device, Percutaneous Approach (ICD-10-PCS; 2018-01-07)
PROC: 5A1955Z Respiratory Ventilation, Greater than 96 Consecutive Hours (ICD-10-PCS; 2018-01-07)
DX: I60.4 Nontraumatic subarachnoid hemorrhage from basilar artery (principal); J96.00 Acute respiratory failure, unspecified whether with hypoxia or hypercapnia; I63.8 Other cerebral infarction; G91.1 Obstructive hydrocephalus; I16.1 Hypertensive emergency; E87.2 Acidosis; N17.9 Acute kidney failure, unspecified; I67.848 Other cerebrovascular vasospasm and vasoconstriction; R40.2433 Glasgow coma scale score 3-8, at hospital admission; Z51.5 Encounter for palliative care; Z66 Do not resuscitate; N18.3 Chronic kidney disease, stage 3 (moderate); I48.91 Unspecified atrial fibrillation; I12.9 Hypertensive chronic kidney disease with stage 1 through stage 4 chronic kidney disease, or unspecified chronic kidney disease; I25.10 Atherosclerotic heart disease of native coronary artery without angina pectoris; R50.9 Fever, unspecified; Z79.82 Long term (current) use of aspirin; I25.2 Old myocardial infarction; K21.9 Gastro-esophageal reflux disease without esophagitis; Z95.5 Presence of coronary angioplasty implant and graft; Z82.49 Family history of ischemic heart disease and other diseases of the circulatory system; Z79.01 Long term (current) use of anticoagulants
CPT/HCPCS: 36415; 51702; 70450; 70496; 71045; 80048; 80053; 81002; 81003; 81015; 82553; 82805; 83930; 84484; 85025; 85610; 85730; 87040; 87070; 87086; 87205; 93005; 93970; 94002; 94003; 96365; 96366; 96374; 96375; A4216; C9113; C9132; G8978-GP-CN; G8979-GP-CK; G8987-GO-CN; G8988-GO-CJ; J0131; J0690; J1200; J1953; J1956; J2001; J2060; J2150; J2250; J2270; J2704; J3010; J3430; J7050; J7799